=== PATIENT | female | born 1995 | race Caucasian/White ===

== ENCOUNTER 2016-12-27 22:31 | Outpatient (CLI) | payer MEDICAID ==
[~2016-12-27] VITALS: Ht 167.6 cm; Wt 97.3 kg
[2016-12-27 23:04] VITALS: BP 112/68
[2016-12-27] MEDS ORDERED: RANI75TA12 PO (23:15)
== END 2016-12-27 23:45 | disposition home or self-care (01) ==
LOC: LDOP 22:31
PROVIDERS: ATTEND Obstetrics & Gynecology
DX: O26.893 Other specified pregnancy related conditions, third trimester (principal); O42.92 Full-term premature rupture of membranes, unspecified as to length of time between rupture and onset of labor; O48.0 Post-term pregnancy; R10.9 Unspecified abdominal pain; Z3A.40 40 weeks gestation of pregnancy
CPT/HCPCS: 59025; 81001; 89060; 99201; G0463; Q0114

== ENCOUNTER 2017-01-01 08:04 | Inpatient (IN) | payer MEDICAID ==
[~2017-01-01] VITALS: Ht 167.6 cm; Wt 98.6 kg
[~2017-01-01 08:04] MED LIST: RANI75TA12 PO
[2017-01-02] MEDS ORDERED: OXYTOCIN 30U/ 0.9% NaCL 500ML 500 ML IV ONE (20:08)
[2017-01-02] MEDS ORDERED: LACTATED RINGERS 1,000 ML IV SCH (20:08)
[2017-01-02] MEDS ORDERED: D5%-LACTATED RINGERS 1,000 ML IV SCH (20:08)
[2017-01-02] MEDS ORDERED: SODIUM CITRATE/CITRIC ACID 30 ML UDC PO PRN (20:30)
[2017-01-02] MEDS ORDERED: FENTANYL PF 100 MCG/2ML IV PRN (20:30)
[2017-01-02] MEDS ORDERED: CALCIUM CARBONATE 500 MG TAB.CHEW PO PRN (20:30)
[2017-01-02] MEDS ORDERED: MISOPROSTOL 25 MCG TABLET VG PRN (20:30)
[2017-01-02] MEDS ORDERED: FENTANYL PF 100 MCG/2ML IVPush PRN (20:30)
[2017-01-02] MEDS ORDERED: TERBUTALINE 1 MG/ML, 1ML IVPush PRN (20:30)
[2017-01-02] MEDS ORDERED: METOCLOPRAMIDE 5 MG/ML, 2ML IVPush PRN (20:30)
[2017-01-02] MEDS ORDERED: PLEASE ENTER HEIGHT AND WEIGHT MC SCH (20:30)
[2017-01-02] MEDS ORDERED: ONDANSETRON 2MG/ML, 2ML IVPush PRN (20:30)
[2017-01-02] MEDS ORDERED: LIDOCAINE 1%, 20ML ONE (20:35)
[2017-01-02] MEDS ORDERED: MISOPROSTOL 200 MCG TABLET ONE (20:36)
[2017-01-02] MEDS ORDERED: NEWBORN KIT ONE (20:36)
[2017-01-02] MEDS ORDERED: MISOPROSTOL 25 MCG TABLET ONE (20:45)
[2017-01-02 21:04] LABS: HEMOGLOBIN 13.2 g/dL (11.7-16.4); WHITE BLOOD COUNT 11.5 x10^3/uL (3.4-10)
[2017-01-03] MEDS ORDERED: CALCIUM CARBONATE 500 MG TAB.CHEW ONE ×2 (00:43→03:51)
[2017-01-03] MEDS ORDERED: MISOPROSTOL 25 MCG TABLET ONE (01:08)
[2017-01-03] MEDS ORDERED: PANTOPROZOLE 40MG TABLET PO SCH (06:30)
== END 2017-01-03 11:45 | disposition home or self-care (01) | DRG 782 ==
LOC: LDIP 01-02 20:05
PROVIDERS: ADMIT Obstetrics & Gynecology; ATTEND Obstetrics & Gynecology
DX: O76 Abnormality in fetal heart rate and rhythm complicating labor and delivery (principal); Z88.2 Allergy status to sulfonamides; Z3A.39 39 weeks gestation of pregnancy
CPT/HCPCS: 36415; 85025; 86850; 86900; 93005

== ENCOUNTER 2017-01-05 05:56 | Inpatient (IN) | payer MEDICAID ==
[~2017-01-05] VITALS: Ht 167.6 cm; Wt 98.6 kg
[2017-01-05 06:15] VITALS: BP 133/74
[2017-01-05] MEDS ORDERED: OXYTOCIN 30U/ 0.9% NaCL 500ML 500 ML IV ONE (08:09)
[2017-01-05] MEDS ORDERED: OXYTOCIN 30U/ 0.9% NaCL 500ML 500 ML IV PRN (08:09)
[2017-01-05] MEDS ORDERED: FENTANYL PF 100 MCG/2ML ONE (08:15)
[2017-01-05] MEDS: LACTATED RINGERS 1,000 ML IV SCH ×4 (08:17→17:48)
[2017-01-05] MEDS ORDERED: FENTANYL PF 100 MCG/2ML IVPush PRN (08:30)
[2017-01-05] MEDS: PLEASE ENTER HEIGHT AND WEIGHT MC SCH ×2 (08:30→16:30)
[2017-01-05 08:39] LABS: HEMOGLOBIN 14.3 g/dL (11.7-16.4); WHITE BLOOD COUNT 20.9 x10^3/uL (3.4-10)
[2017-01-05 08:40] LABS: DIFF TOTAL CELLS COUNTED 100 CELL DIFF
[2017-01-05] MEDS ORDERED: LIDOCAINE/PF 1.5%-EPI 1:200K, 30ML ONE (09:07)
[2017-01-05] MEDS ORDERED: FENTANYL/BUPIV./NS/PF 250 ML EPIDCONT ONE (09:07)
[2017-01-05] MEDS ORDERED: OXYTOCIN 30U/ 0.9% NaCL 500ML 500 ML ONE ×2 (09:28→22:48)
[2017-01-05 09:31] LABS: VERIFY COUNTS? YES
[2017-01-05] MEDS ORDERED: FENTANYL/BUPIV./NS/PF 250 ML EPIDCONT SCH (09:48)
[2017-01-05] MEDS ORDERED: EPHEDRINE 50 MG/ML, 1ML IVPush PRN (10:00)
[2017-01-05] MEDS ORDERED: NALOXONE 0.4 MG/ML, 1ML IVPush PRN (10:00)
[2017-01-05] MEDS ORDERED: LACTATED RINGERS 1,000 ML IVBOLUS PRN (10:00)
[2017-01-05] MEDS ORDERED: ONDANSETRON 2MG/ML, 2ML ONE ×2 (10:35→17:01)
[2017-01-05] MEDS: ONDANSETRON 2MG/ML, 2ML IVPush PRN ×2 (10:37→17:02)
[2017-01-05] MEDS ORDERED: NEWBORN KIT ONE (11:19)
[2017-01-05] MEDS ORDERED: CALCIUM CARBONATE 500 MG TAB.CHEW ONE ×5 (12:23→20:20)
[2017-01-05] MEDS: CALCIUM CARBONATE 500 MG TAB.CHEW PO PRN ×4 (12:24→20:23)
[2017-01-05] MEDS: D5%-LACTATED RINGERS 1,000 ML IV SCH ×2 (15:27→16:09)
[2017-01-05] MEDS ORDERED: GENTAMICIN 150 MG in SODIUM CHLORIDE 0.9% 100 ML IV SCH (19:30)
[2017-01-05] MEDS ORDERED: AMPICILLIN 2 GM in SODIUM CHLORIDE 0.9% 100 ML IV SCH (19:30)
[2017-01-05] MEDS ORDERED: IBUPROFEN 600 MG TABLET ONE (22:46)
[2017-01-05] MEDS: OXYTOCIN 30U/ 0.9% NaCL 500ML 500 ML IV SCH (22:50)
[2017-01-05] MEDS ORDERED: MISOPROSTOL 200 MCG TABLET PR PRN (23:00)
[2017-01-05] MEDS ORDERED: CALCIUM CARBONATE 500 MG TAB.CHEW PO PRN (23:00)
[2017-01-05] MEDS ORDERED: HYDROcodone/APAP 5/325 TABLET PO PRN (23:00)
[2017-01-05] MEDS ORDERED: ONDANSETRON 2MG/ML, 2ML IV PRN (23:00)
[2017-01-05] MEDS ORDERED: GENTAMICIN PER PHARMACY MC PRN (23:00)
[2017-01-05] MEDS ORDERED: GENTAMICIN 440 MG in SODIUM CHLORIDE 0.9% 100 ML IV SCH (23:30)
[2017-01-05] MEDS ORDERED: PHARMACOKINETIC MONITORING MC PRN (23:30)
[2017-01-06] MEDS ORDERED: LIDOCAINE 1%, 20ML ONE (01:21)
[2017-01-06] MEDS ORDERED: NEWBORN KIT ONE (01:22)
[2017-01-06] MEDS ORDERED: MISOPROSTOL 200 MCG TABLET ONE (01:22)
[2017-01-06] MEDS: AMPICILLIN 2 GM in SODIUM CHLORIDE 0.9% 100 ML IV SCH ×4 (01:30→20:53)
[2017-01-06] MEDS: GENTAMICIN 140 MG in SODIUM CHLORIDE 0.9% 50 ML IV SCH ×4 (04:00→21:34)
[2017-01-06 08:10] VITALS: BP 111/63
[2017-01-06] MEDS: DOCUSATE 100 MG CAPSULE PO PRN ×2 (08:20→20:53)
[2017-01-06] MEDS: PRENATAL VIT/IRON/FA 1 EACH TABLET PO SCH (08:20)
[2017-01-06 08:26] LABS: HEMATOCRIT 36.5 % (34.6-47.8); HEMOGLOBIN 12.2 g/dL (11.7-16.4); WHITE BLOOD COUNT 26.7 x10^3/uL (3.4-10)
[2017-01-06] MEDS: OXYTOCIN 30U/ 0.9% NaCL 500ML 500 ML IV SCH ×2 (08:50→18:50)
[2017-01-06 12:00] VITALS: BP 100/59
[2017-01-06] MEDS: IBUPROFEN 600 MG TABLET PO PRN ×2 (13:01→20:53)
[2017-01-06] MEDS: HYDROcodone/APAP 5/325 TABLET PO PRN ×2 (16:08→20:53)
[2017-01-06 19:30] VITALS: BP 96/52
[2017-01-06] MEDS ORDERED: DIPH,PERTUSS(ACELL),TET VAC/PF NC IM-VACC ONE (21:00)
[2017-01-07] MEDS: OXYTOCIN 30U/ 0.9% NaCL 500ML 500 ML IV SCH ×2 (04:50→14:50)
[2017-01-07 08:40] VITALS: BP 95/42
[2017-01-07] MEDS: IBUPROFEN 600 MG TABLET PO PRN ×2 (08:50→17:16)
[2017-01-07] MEDS: PRENATAL VIT/IRON/FA 1 EACH TABLET PO SCH (08:50)
[2017-01-07] MEDS: DOCUSATE 100 MG CAPSULE PO PRN (08:50)
[2017-01-07] MEDS ORDERED: HYDR-3240 PO (14:22)
[2017-01-07] MEDS ORDERED: IBUP-1223 PO (14:23)
[2017-01-07] MEDS ORDERED: DOCU-131 PO (14:24)
== END 2017-01-07 18:09 | disposition home or self-care (01) | DRG 775 ==
LOC: LDOP 05:56 → LDIP 08:08 → 2NW 01-06 00:50
PROVIDERS: ADMIT Student in an Organized Health Care Education/Training Program; ATTEND Student in an Organized Health Care Education/Training Program
PROC: 10E0XZZ Delivery of Products of Conception, External Approach (ICD-10-PCS; principal; 2017-01-05)
PROC: 0HQ9XZZ Repair Perineum Skin, External Approach (ICD-10-PCS; 2017-01-05)
PROC: 3E0S3CZ (ICD-10-PCS; 2017-01-05)
PROC: 00HU33Z Insertion of Infusion Device into Spinal Canal, Percutaneous Approach (ICD-10-PCS; 2017-01-05)
DX: O75.81 Maternal exhaustion complicating labor and delivery (principal); O41.1230 Chorioamnionitis, third trimester, not applicable or unspecified; O63.0 Prolonged first stage (of labor); O76 Abnormality in fetal heart rate and rhythm complicating labor and delivery; O70.0 First degree perineal laceration during delivery; Z37.0 Single live birth; Z3A.40 40 weeks gestation of pregnancy; Z88.2 Allergy status to sulfonamides; Z87.891 Personal history of nicotine dependence; Z23 Encounter for immunization
CPT/HCPCS: 36415; 85025; 86850; 86900; 90715; J0290; J2405; J3010; J1580; J2590; J7120; J7121